=== PATIENT | female | born 1985 | race Caucasian/White ===

== ENCOUNTER 2022-04-11 00:35 | Emergency (ER) | payer OTHER, SELFPAY ==
[2022-04-11 00:45] VITALS: BP 120/75; PULSE 73; RESP 18; TEMP 36.9; O2SAT 98; BMI 27.3
--- NOTE | 2022-04-11 01:12 | ED.URI ---
HPI - URI/Sore Throat General Chief Complaint: Upper Respiratory Symptoms Stated Complaint: Sore throat/L Ear Pain/Headache Time Seen by Provider: 04/11/22 01:03 Source: patient History of Present Illness HPI Narrative: Patient states she has been having left ear discomfort intermittently for the past few months. She had 1 episode of vertigo. Over the last 4-5 days, however, she has developed a sore throat, with ear pain which she has not had before. Positive cough without fevers or chills. No shortness of breath. She tested negative for COVID recently. No nausea vomiting No vertigo now No alleviating factors. She was using fluticasone nasal spray without improvement. Related Data Previous Rx's Medication Instructions Recorded ibuprofen 600 mg tablet 600 mg PO TID PRN fever or pain 04/11/22 #30 tabs oxymetazoline 0.05 % nasal spray 2 spray intranasal Q12H PRN nasal 04/11/22 (Afrin (oxymetazoline)) congestion 3 days #15 mL Allergies Allergy/AdvReac Type Severity Reaction Status Date / Time No Known Allergies Allergy Verified 04/11/22 01:12 Review of Systems Constitutional: Comments: No fevers or chills ENT: Comments: Left ear pain. Sore throat Cardiovascular: Comments: No chest pain Respiratory: Comments: Cough without dyspnea Gastrointestinal: Comments: No nausea vomiting diarrhea abdominal pain Integumentary/Breasts: Comments: No rash Neurologic: Comments: No weakness PMFSH Social History Social History Advance Directives: No Advance Directives Information Provided: No Physical Exam Vital Signs: Vital Signs: Last Vital Signs Temp 98.4 F 04/11/22 00:45 Pulse 73 04/11/22 00:45 Resp 18 04/11/22 00:45 BP 120/75 04/11/22 00:45 Pulse Ox 98 04/11/22 00:45 O2 Del Method 04/11/22 00:45 BMI result Body Mass Index 27.3 Course Course Course Narrative: 01:58. PCR negative for COVID-19, influenza, RSV. Discharged home. Afrin nasal spray. Medical Decision Making Lab Data Labs: Lab Results 04/11/22 04/11/22 Range/Units 01:00 01:00 Influenza Type A (PCR) NEGATIVE (Negative) Influenza Type B (PCR) NEGATIVE (Negative) RSV RNA Qual (PCR) NEGATIVE (Negative) SARS-CoV-2 RNA (RT-PCR) NEGATIVE (Negative) S. pyogenes GrpA ANIA Negative (Negative) Discharge Plan Discharge Clinical Impression: Upper respiratory infection Patient Disposition: Home, Self-Care Instructions: Upper Respiratory Infection (ED) Prescriptions: New oxymetazoline [Afrin (oxymetazoline)] 0.05 % spray,non-aerosol 2 spray intranasal Q12H PRN (Reason: nasal congestion) 3 Days Qty: 15 0RF ibuprofen 600 mg tablet 600 mg PO TID PRN (Reason: fever or pain) Qty: 30 0RF
[2022-04-11 01:19] LABS: Strep A Nucleic Acid Negative (Negative)
[2022-04-11 01:45] LABS: Influenza A PCR NEGATIVE (Negative); Influenza B PCR NEGATIVE (Negative); Resp Syncy Virus RNA Qual PCR NEGATIVE (Negative); SARS COV2 PCR INHOUSE NEGATIVE (Negative)
[2022-04-11 02:16] VITALS: BP 106/70; PULSE 73; RESP 19; TEMP 36.8; O2SAT 97
== END 2022-04-11 02:18 | disposition home or self-care (01) ==
PROVIDERS: Emergency Provider Emergency Medicine
DX: J06.9 Acute upper respiratory infection, unspecified (principal); J02.9 Acute pharyngitis, unspecified; Z20.828 Contact with and (suspected) exposure to other viral communicable diseases
CPT/HCPCS: 0241U; 87651; 99283